=== PATIENT | male | born 1965 | race Two or more races ===

== ENCOUNTER 2019-08-21 19:33 | Emergency (ER) | payer BC, OTHER ==
[~2019-08-21] VITALS: Ht 188 cm; Wt 124.7 kg
[2019-08-21 20:01] VITALS: BP 124/67
[2019-08-21 20:54] LABS: APPEARANCE,URINE Clear (CLEAR); BILIRUBIN,URINE Negative (NEGATIVE); BLOOD, URINE Negative Ery/uL (NEGATIVE); COLOR,URINE Yellow (YELLOW); KETONES,URINE Trace (NEGATIVE); LEUKOCYTE ESTERASE ,URINE Negative (NEGATIVE); NITRITE, URINE Negative (NEGATIVE); PH,URINE 6.5 (5.0-8.0); PROTEIN,URINE Negative (NEGATIVE); UGLUCOSE Negative (NEGATIVE)
[2019-08-21 20:56] LABS: BACTERIA,URINE Rare /HPF (None Seen); RBC,URINE NONE SEEN /HPF (0-2); SQUAMOUS EPITHELIAL CELL,UR Few /HPF (None Seen); WBC,URINE NONE SEEN /HPF (0-3)
[2019-08-21] MEDS ORDERED: KETOROLAC TROMETHAMINE INJ 60 MG/2 ML VIAL IM ONE ×2 (21:00→21:02)
== END 2019-08-21 22:01 | disposition home or self-care (01) ==
LOC: ER 19:45
DX: M54.5 Low back pain (principal); F10.10 Alcohol abuse, uncomplicated; F17.200 Nicotine dependence, unspecified, uncomplicated; Y90.9 Presence of alcohol in blood, level not specified; Z85.3 Personal history of malignant neoplasm of breast
CPT/HCPCS: 72100; 81001; 96372; 99284; J1885; 81000-TC

== ENCOUNTER 2020-05-29 22:20 | Emergency (ER) | payer BC, OTHER ==
[~2020-05-29] VITALS: Ht 185.4 cm; Wt 113.4 kg
[2020-05-29 22:29] VITALS: BP 131/70
== END 2020-05-29 22:33 | disposition home or self-care (01) ==
LOC: ER 22:20
DX: Z76.0 Encounter for issue of repeat prescription (principal); G89.29 Other chronic pain; M54.9 Dorsalgia, unspecified; F17.200 Nicotine dependence, unspecified, uncomplicated; Z85.3 Personal history of malignant neoplasm of breast

== ENCOUNTER 2021-06-15 18:03 | Emergency (ER) | payer BC, OTHER ==
[~2021-06-15] VITALS: Ht 188 cm; Wt 104.3 kg
[2021-06-15 18:28] VITALS: BP 101/64
--- NOTE | 2021-06-15 18:38 | NUR ---
The patient bibs for c/o toothache and fever x 2 days. Rates pain 7/10. The patient is afebrile at this time. In room air and denies SOB. Respiration regular and unlabored. Will continue to monitor the patient.
[2021-06-15] MEDS ORDERED: AMOX-430 PO (18:50)
[2021-06-15] MEDS ORDERED: IBUP-1957 PO (18:50)
[2021-06-15] MEDS ORDERED: CHLO473M3 PO (18:50)
--- NOTE | 2021-06-15 18:56 | NUR ---
Patient discharged to home in stable condition. Written and verbal after care instructions given. Patient verbalizes understanding of instruction.
== END 2021-06-15 18:56 | disposition home or self-care (01) ==
LOC: ER 18:09
DX: K08.89 Other specified disorders of teeth and supporting structures (principal); K05.10 Chronic gingivitis, plaque induced; F17.200 Nicotine dependence, unspecified, uncomplicated; Z85.3 Personal history of malignant neoplasm of breast; Z79.899 Other long term (current) drug therapy

== ENCOUNTER 2021-12-07 11:55 | Emergency (ER) | payer BC, OTHER ==
[~2021-12-07] VITALS: Ht 185.4 cm; Wt 122.5 kg
[~2021-12-07 11:55] MED LIST: AMOX-430 PO; CHLO473M3 PO; IBUP-1957 PO
--- NOTE | 2021-12-07 12:00 | NUR ---
SENT TO ER BED 9. BIB SELF C/O L FLANK PAIN X 2 DAYS. AWAITING MD MCGOVERN
--- NOTE | 2021-12-07 13:17 | NUR ---
DR SUTHERLAND AT BEDSIDE
[2021-12-07] MEDS ORDERED: ACETAMINOPHEN ES 500 MG TABLET PO ONE (13:30)
[2021-12-07] MEDS ORDERED: ACETAMINOPHEN ES 500 MG TABLET ONE (13:32)
--- NOTE | 2021-12-07 13:53 | NUR ---
PT TAKEN TO CT
[2021-12-07 13:55] LABS: BASOPHILS # (AUTO) 0.1 K/uL (0.0-0.2); BASOPHILS % (AUTO) 1.8 % (0.0-2.0); EOSINOPHILS % (AUTO) 3.1 % (0.0-6.0); HEMATOCRIT 49 % (39-51); HEMOGLOBIN 16.8 g/dL (13.5-17.5); LYMPHOCYTES # (AUTO) 2.1 K/uL (0.8-4.8); LYMPHOCYTES % (AUTO) 32.6 % (20.0-44.0); MEAN CORPUSCULAR HGB CONC 35 g/dl (31.0-36.0); MEAN CORPUSCULAR VOLUME 86 fL (80-96); MONOCYTES # (AUTO) 0.5 K/uL (0.1-1.30); MONOCYTES % (AUTO) 7.2 % (2.0-12.0); NEUTROPHILS # (AUTO) 3.6 K/uL (1.8-8.9); NEUTROPHILS % (AUTO) 55.3 % (43.0-81.0); PLATELET COUNT (AUTO) 225 K/uL (150-450); WHITE BLOOD COUNT (AUTO) 6.6 K/uL (4.3-11.0)
--- NOTE | 2021-12-07 14:21 | NUR ---
urine collected and sent
[2021-12-07] MEDS ORDERED: LIDO30AD10 TP (15:49)
[2021-12-07] MEDS ORDERED: ACET-2605 PO (15:49)
[2021-12-07 15:58] LABS: BILIRUBIN,URINE NEGATIVE (NEGATIVE); COLOR,URINE YELLOW (YELLOW); LEUKOCYTE ESTERASE ,URINE NEGATIVE (NEGATIVE); NITRITE, URINE NEGATIVE (NEGATIVE); PH,URINE 5.5 (5.0-8.0); PROTEIN,URINE NEGATIVE (NEGATIVE); UGLUCOSE NEGATIVE (NEGATIVE); UROBILINOGEN,URINE 0.2 EU/dL (0.2)
[2021-12-07 17:14] LABS: CALCIUM, SERUM 8.9 mg/dL (8.5-10.1); CREATININE 1.1 mg/dL (0.6-1.3)
[2021-12-07] MEDS ORDERED: KETOROLAC TROMETHAMINE INJ 30 MG/ML VIAL IV ONE (18:00)
[2021-12-07 18:02] LABS: POTASSIUM 4.3 mmol/L (3.5-5.1)
--- NOTE | 2021-12-07 18:22 | NUR ---
IV removed. Catheter intact and site benign. Pressure and 4x4 applied to site. No bleeding noted.Patient discharged to home in stable condition. Written and verbal after care instructions given. Patient verbalizes understanding of instruction.
[2021-12-07 18:23] VITALS: BP 124/71
== END 2021-12-07 18:24 | disposition home or self-care (01) ==
LOC: ER 12:02
DX: R10.32 Left lower quadrant pain (principal); R07.81 Pleurodynia; F17.200 Nicotine dependence, unspecified, uncomplicated; Z79.1 Long term (current) use of non-steroidal anti-inflammatories (NSAID); Z79.891 Long term (current) use of opiate analgesic; Z79.899 Other long term (current) drug therapy
CPT/HCPCS: 36415; 71046; 80048-TC; 85025-TC